=== PATIENT | female | born 1985 | race Caucasian/White ===

== ENCOUNTER 2021-11-28 16:50 | Emergency (ER) | payer OTHER, SELFPAY ==
[2021-11-28 17:18] VITALS: BP 147/81; PULSE 81; RESP 16; TEMP 35.9; O2SAT 99
--- NOTE | 2021-11-28 18:27 | ED.URI ---
HPI - URI/Sore Throat General Chief Complaint: Upper Respiratory Infection Stated Complaint: not feeling well Time Seen by Provider: 11/28/21 18:19 Source: patient and RN notes reviewed Mode of arrival: ambulatory Limitations: no limitations History of Present Illness HPI Narrative: Patient presents today complaining of body aches, fatigue, diarrhea, cough, congestion, chills, headache since yesterday. Denies fever. She currently rates her pain 7/10 and has tried no [id number] interventions prior to arrival. Denies any sick exposures. She has not been vaccinated against influenza or COVID-19. MD elicited complaint: cough and nasal congestion Related Data Home Medications Medication Instructions Recorded Confirmed Unable to Obtain Home Medications 11/28/21 11/28/21 Allergies Allergy/AdvReac Type Severity Reaction Status Date / Time metformin Allergy Headache Verified 11/28/21 17:29 Review of Systems Review of Systems: CONSTITUTIONAL: Denies fever, or sweats.+ Body aches, chills, fatigue EYES: Denies visual changes, redness, or discharge. ENT: Denies rhinorrhea, sore throat, or otalgia.+ Congestion CARDIOVASCULAR: Denies chest pain, palpitations, or edema. RESPIRATORY: Denies dyspnea.+ Cough GASTROINTESTINAL: Denies abdominal pain, nausea, vomiting.+ Diarrhea GENITOURINARY: Denies dysuria or hematuria. SKIN: Denies rash, itching, or wounds. MUSCULOSKELETAL: Denies back pain, joint pain, or myalgia. NEUROLOGIC: Denies headache, numbness, tingling, or weakness. PSYCH: Denies depression or anxiety. PMFSH Comments At time of signature, I have reviewed and agree with nursing past medical, surgical, social and family history unless otherwise noted. Please see nursing chart for further information. There is no relevant family history pertinent to the presenting complaint Exam Narrative: GENERAL: Mildly ill-appearing, well-nourished, and in no acute distress. HEAD: Normocephalic, atraumatic. EYES: EOMI. No redness or drainage. Conjunctivae normal. ENT: Mucous membranes pink and moist. Nares clear. No rhinorrhea. TMs normal bilaterally. Throat mildly erythematous without edema or exudate. Uvula midline. NECK: Normal AROM. Supple. No lymphadenopathy. CHEST: No respiratory distress. Clear to auscultation. HEART: Regular rate and rhythm. No murmur appreciated. Normal peripheral pulses. EXTREMITIES: Normal range of motion. No edema. SKIN: Warm, dry, no rash. Capillary refill normal. Normal skin turgor. NEURO: No focal deficits. Alert and oriented x3. Gait steady. PSYCH: Normal affect. No signs of depression or anxiety. Course Course Level of Care: Express Care Visit Vital Signs Vital signs: Vital Signs Temperature 96.7 F L 11/28/21 17:18 Pulse Rate 81 11/28/21 17:18 Respiratory Rate 16 11/28/21 17:18 Blood Pressure 147/81 H 11/28/21 17:18 Pulse Oximetry 99 11/28/21 17:18 Temperature 96.7 F L 11/28/21 17:18 Pulse Rate 81 11/28/21 17:18 Respiratory Rate 16 11/28/21 17:18 Blood Pressure 147/81 H 11/28/21 17:18 Pulse Oximetry 99 11/28/21 17:18 Reviewed. Pt has been instructed to follow up with her PCP regarding her elevated blood pressure today. MDM - URI/Sore Throat Differential Diagnosis Differential diagnosis: Likely upper respiratory infection, viral infection, influenza and other (COVID-19) Lab Data Attestation: I reviewed the patient's lab results. Labs: Lab Results 11/28/21 Range/Units 18:25 POC SARS CoV-2 Ag Negative (Negative) Critical Care Time Critical Care Time Critical Care Time: No Discharge Plan Discharge Clinical Impression: Viral syndrome Patient Disposition: Home, Self-Care Condition: Stable Instructions: Viral Syndrome (ED) Additional Instructions: Your rapid COVID-19 test is negative today. We have swabbed you for COVID-19 PCR and will notify you of the results in a couple of days. Take [id number] medi
--- NOTE | 2021-11-30 11:00 | PC.NURSE ---
called and requested covid pcr test result and aware is pending.
[2021-12-01 18:17] LABS: SARS-CoV-2 RNA PCR Negative
== END 2021-11-28 19:10 | disposition home or self-care (01) ==
PROVIDERS: Emergency Provider Nurse Practitioner
DX: B34.9 Viral infection, unspecified (principal); Z20.822 Contact with and (suspected) exposure to COVID-19; E11.9 Type 2 diabetes mellitus without complications
CPT/HCPCS: 87426; 99203; C9803; G0463; U0003; U0005

== ENCOUNTER 2022-02-05 20:00 | Emergency (ER) | payer OTHER, SELFPAY ==
[2022-02-05 20:08] VITALS: BP 146/102; PULSE 114; RESP 16; TEMP 37.1; O2SAT 100
--- NOTE | 2022-02-05 20:08 | ED.SOB ---
HPI - SOB/Dyspnea General Chief Complaint: Shortness of Breath/Dyspnea Stated Complaint: sob/cp Time Seen by Provider: 02/05/22 20:09 Source: patient, RN notes reviewed and old records reviewed Mode of arrival: ambulatory Limitations: no limitations History of Present Illness HPI Narrative: 36-year-old female presents to the [facility] with complaints of upper back pain between her scapulas for the last 2 to 3 days. Patient states that she pulled a muscle. 20 minutes prior to arrival she started having chest pain and shortness of breath. Patient has a history of diabetes. Blood sugars have been in the 200s. Denies any heart or lung issues. MD elicited complaint: shortness of breath Related Data Home Medications Medication Instructions Recorded Confirmed dulaglutide [Trulicity] 4.5 mg SUBCUT DAILY 02/05/22 02/05/22 Allergies Allergy/AdvReac Type Severity Reaction Status Date / Time metformin Allergy Headache Verified 02/05/22 20:02 Review of Systems Review of Systems: All systems reviewed & are unremarkable except as noted in HPI and below Constitutional: Constitutional: Reports no additional constitutional complaints, Denies chills and Denies fever(s) Eyes: Eyes: Reports no additional eye complaints ENT: Reports system reviewed and no additional complaints, except as documented and Denies sore throat Cardiovascular: Cardiovascular: Reports as per HPI, Reports chest pain and Reports rapid heart rate Respiratory: Respiratory: Reports as per HPI and Reports dyspnea Gastrointestinal: Gastrointestinal: Reports no additional gastrointestinal complaints, Denies abdominal pain, Denies nausea and Denies vomiting Musculoskeletal: Musculoskeletal: Reports as per HPI and Reports back pain Integumentary/Breasts: Skin/Breast: Reports system reviewed and no additional complaints, except as docu Neurologic: Reports system reviewed and no additional complaints, except as documented Psychiatric: Psychiatric: Reports no additional psychiatric complaints Allergic/Immunologic: Allergic/Immunologic: Reports no additional allergic/immunologic complaints PMFSH Comments At the time of my signature, I reviewed and agree with the nursing past medical, surgical, social, and family history. There is no relevant family history pertinent to the patient complaint. Exam Const: General: alert, awake, acute distress and anxious Nutritional Appearance: well nourished and obese centrally obese Orientation/consciousness: patient oriented x3 Limitations: no limitations HENMT: Head: normal to inspection Ears: external ears normal Eyes: Pupils: Equal, round and reactive pupils present Neck: Neck: normal visual inspection, no lymphadenopathy and no meningeal signs Chest: Chest palpation & inspection: normal inspection of the chest Resp: Effort & Inspection: normal respiratory effort and no use of accessory muscles Auscultation: clear to auscultation bilaterally, no crackles, no rales, no rhonchi and no wheezes Cardio: Rate: regular rate Rhythm: regular rhythm GI: GI Palp: Yes Soft to palpation and No Tenderness to palpation present (GI) Back/Spine/Pelvis: Back: no CVA tenderness Cervical Spine: normal cervical lordosis Other: Tenderness between scapulas worse on the right side Skin: General skin exam: normal color Rashes: no rashes Wounds: no wounds Neuro: General: patient oriented x3, moves all extremities, no meningeal signs and no focal motor deficits Cranial nerves: Yes Equal, round and reactive pupils present Speech: normal speech Gait exam (Neuro): Normal gait present Extrem: General: normal to inspection Psych: Appearance: grossly normal and well kempt Affect: Anxious affect present Attitude: cooperative Thought content: Yes Normal thought content present Course Course Emergency Course: Patient stating that she is having trouble breathing, chest pain, worst pain of her life 10 out of 10, EMS notified for transpor
--- NOTE | 2022-02-05 20:15 | ECG_ITS ---
Measurements Intervals [place] Rate: 105 P: 67 HI: 154 QRS: 51 QRSD: 93 T: 60 QT: 319 QTc: 423 Interpretive Statements SINUS TACHYCARDIA NONSPECIFIC T-WAVE ABNORMALITY ABNORMAL ECG NO PREVIOUS ECG AVAILABLE FOR COMPARISON Electronically Signed On 02-06-2022 13:54:14 CDT by Gerhard Dobson M.D.
[2022-02-05 20:17] LABS: Glucose Point of Care 244 mg/dl (65-105)
[2022-02-05] MEDS: ASPIRIN 81 MG CHEWABLE TABLET 324 MG PO (20:17)
[2022-02-05 20:40] LABS: Glucose Point of Care 277 mg/dl (65-105)
== END 2022-02-05 20:25 | disposition short-term general hospital (02) ==
PROVIDERS: Emergency Provider Nurse Practitioner
DX: R07.9 Chest pain, unspecified (principal); R06.02 Shortness of breath; M54.6 Pain in thoracic spine; E11.9 Type 2 diabetes mellitus without complications
CPT/HCPCS: 82948; 93005; 99215; A9270; G0463

== ENCOUNTER 2022-02-05 20:36 | Emergency (ER) | payer OTHER, SELFPAY ==
--- NOTE | ~2022-02-05 | CT_ITS ---
EXAMINATION: CTA chest PE protocol EXAM DATE: 02/05/2022 22:32 INDICATION: Right shoulder pain migrating to middle of chest. TECHNIQUE: Spiral CTA of the chest (pulmonary arteries) was performed with 100 cc Omnipaque 350 intr avenous contrast injection. Images were acquired during the pulmonary arterial phase. Coronal maxi mum intensity projection 3D-reconstructions were created by the technologist on dedicated workstation . Axial, coronal and sagittal reformatted images were reviewed. The dose-length product (DLP) for t his examination was 837.74 mGy-cm. The exposure was tailored according to patient size (auto mA exp osure control), and iterative reconstruction (ASIR) was used as additional dose reduction technique. There is no prior study for comparison. FINDINGS: Pulmonary arteries are well opacified and without intraluminal filling defects. No thora cic aortic dissection. The lungs are clear. There are no pleural or pericardial effusions. Trach eobronchial tree is patent. There is no mediastinal, hilar or axillary lymphadenopathy. There is no pneumothorax. Heart normal in size. No evidence of coronary arterial calcification. Upper abd omen is unremarkable. There is thoracic spondylosis without osteoblastic or osteolytic lesions iden tified. IMPRESSION: Unremarkable CT pulmonary exam. Reviewed, dictated and finalized at location G.
--- NOTE | ~2022-02-05 | XR_ITS ---
EXAMINATION: XR chest 1V portable EXAM DATE: 02/05/2022 21:00 INDICATION: RT Shoulder Painx2 Days,Sternal Cp Into Shoulder Blades Today. TECHNIQUE: Portable AP frontal chest x-ray was obtained. There is no prior study for comparison. FINDINGS: The lungs are clear. There are no pleural effusions. The cardiomediastinal silhouette is within normal limits. There is no pneumothorax suspected. The bones and soft tissues are unremarkab le. IMPRESSION: Normal chest x-ray exam. Reviewed, dictated and finalized at location G. IMPRESSION: Normal chest x-ray exam.
[2022-02-05 20:37] VITALS: PULSE 120; RESP 18; TEMP 36.5; O2SAT 99
[2022-02-05 20:41] VITALS: BP 143/97
--- NOTE | 2022-02-05 20:46 | ECG_ITS ---
Measurements Intervals [place] Rate: 111 P: 74 HI: 152 QRS: 52 QRSD: 87 T: 42 QT: 321 QTc: 437 Interpretive Statements SINUS TACHYCARDIA NONSPECIFIC T-WAVE ABNORMALITY ABNORMAL ECG COMPARED TO ECG 02/05/2022 20:12:26 NO SIGNIFICANT CHANGES Electronically Signed On 02-06-2022 13:54:33 CDT by Gerhard Dobson M.D.
--- NOTE | 2022-02-05 20:55 | ED.CHESTPAIN ---
HPI - Chest Pain General Chief Complaint: Chest Pain Stated Complaint: chest pain, bs 247 Time Seen by Provider: 02/05/22 20:48 Source: patient and RN notes reviewed Mode of arrival: EMS Limitations: no limitations History of Present Illness HPI narrative: Patient is 36 years old white female came to the ED by ambulance from urgent care because of back pain mainly between shoulder blades started yesterday, intermittent, today started having chest pain, across the chest, sharp stabbing, worse with breathing, coughing and any movement. Patient denies any relieving factors. Patient denies any fever, chills, nausea, vomiting, diarrhea, constipation, shortness of breath patient also denies any stress. Patient started on phentermine the fourth of this month. History of diabetes, smoking and drinking, denies drug use. Related Data Home Medications Medication Instructions Recorded Confirmed dulaglutide [Trulicity] 4.5 mg SUBCUT DAILY 02/05/22 02/05/22 Allergies Allergy/AdvReac Type Severity Reaction Status Date / Time metformin Allergy Headache Verified 02/05/22 20:02 Review of Systems Review of Systems: CONSTITUTIONAL: Denies fever, chills, or sweats. EYES: Denies visual changes, redness, or discharge. ENT: Denies rhinorrhea, congestion, sore throat, or otalgia. CARDIOVASCULAR: Denies chest pain, palpitations, or edema. RESPIRATORY: Denies cough or dyspnea. GASTROINTESTINAL: Denies abdominal pain, nausea, vomiting, or diarrhea. GENITOURINARY: Denies dysuria or hematuria. SKIN: Denies rash or itching. MUSCULOSKELETAL: Back pain and chest pain NEUROLOGIC: Denies headache, numbness, or weakness. PSYCHIATRIC: Denies anxiety or depression. Exam Narrative: General appearance: Well-developed, well-nourished, restless, Skin: Normal color Head: Normocephalic, nontraumatic Eyes: Clear conjunctiva ENT: Oropharynx normal, ears normal, nose normal Neck: Supple, nontender Chest and respiratory: Airway patent, no respiratory distress, no accessory muscle use Heart: Tachycardia Abdomen: Soft, nontender, no organomegaly, quiet bowel sounds Vascular: Normal peripheral pulses, normal capillary refill. Musculoskeletal: Severe diffuse tenderness all over the upper back, bilaterally, no bruises, no swelling. Neurologic: Alert and oriented ?3, [employer] is normal as tested, no gross motor deficit Course Vital Signs Vital signs: Vital Signs Temperature 36.5 C 02/05/22 20:37 Pulse Rate 120 H 02/05/22 20:37 Respiratory Rate 18 02/05/22 20:37 Pulse Oximetry 99 02/05/22 20:37 Temperature 36.5 C 02/05/22 20:37 Pulse Rate 120 H 02/05/22 20:37 Respiratory Rate 18 02/05/22 20:37 Blood Pressure 143/97 H 02/05/22 20:41 Pulse Oximetry 99 02/05/22 20:37 MDM - Chest Pain ECG Data EKG #1: Attestation: I personally reviewed and interpreted this ECG as follows: ECG completion date: 02/05/22 ECG completion time: 20:55 Interpretation: Sinus tachycardia at 105 bpm, nonspecific T wave abnormality, abnormal rhythm EKG. No previous EKG for comparison Critical Care Time Critical Care Time Critical Care Time: Yes Total Critical Care Time: 35 Discharge Plan Discharge Additional Instructions: Patient care turned over to Dr. bowen at shift change, awaiting labs, imaging, disposition. Prescriptions: No Action Trulicity 4.5 mg/0.5 mL pen injector 4.5 mg SUBCUT DAILY RF: 0 Follow-up/Referrals: UNKNOWN,DOCTOR [Primary Care Provider] -
[2022-02-05 21:20] LABS: Basophils Absolute Auto 0.1 K/mm3 (0.0-0.1); Basophils Percent Auto 0.4 % (0.2-1.2); Eosinophils Absolute Auto 0.3 K/mm3 (0-0.3); Eosinophils Percent Auto 1.5 % (0-4.4); Hematocrit 37.8 % (37.0-47.0); Hemoglobin 12.6 g/dL (12.0-15.0); Immature Granulocyte Absolute 0.08 K/mm3 (0.00-0.031); Immature Granulocyte Percent A 0.4 % (0-0.5); Lymphocytes Absolute Auto 6.44 K/mm3 (0.9-3.2); Lymphocytes Percent Auto 31.7 % (18.3-44.2); Mean Corpuscular HGB Conc 33.3 g/dl (32-36); Mean Corpuscular Hemoglobin 26.5 pg (26-34); Mean Corpuscular Volume 79.4 fl (80-100); Mean Platelet Volume 9.3 fl (7.4-10.4); Monocytes Absolute Auto 0.9 K/mm3 (0.1-0.6); Monocytes Percent Auto 4.3 % (2.6-8.5); Neutrophils Absolute Auto 12.5 K/mm3 (1.3-6.7); Neutrophils Percent Auto 61.7 % (45.5-73.1); Platelet Count Result 440 k/mm3 (150-375); Red Blood Count 4.76 M/mm3 (4.2-5.4); Red Cell Distribution Width 14.6 % (11.5-14.5); White Blood Count 20.3 K/mm3 (4.5-10.0)
[2022-02-05] MEDS: ONDANSETRON INJ 4 MG/2 ML VIAL IV PUSH (21:28)
[2022-02-05] MEDS: KETOROLAC 30 MG/ML VIAL (*BKC) IV PUSH (21:29)
[2022-02-05 21:30] LABS: Alanine Aminotransferase 22 U/L (4-35); Alkaline Phosphatase 93 U/L (38-126); Anion Gap 9 mmol/L (8-16); Aspartate Amino Transferase 23 U/L (14-36); Bilirubin,Total 0.2 mg/dL (0.2-1.3); Blood Urea Nitrogen 5 mg/dL (7-17); Calcium 8.9 mg/dL (8.4-10.2); Carbon Dioxide 19 mmol/L (22-30); Chloride 104 mmol/L (98-107); Estimated CRCL calculation 140 ml/min; Estimated Glomerular Filt Rate > 60; Glucose 270 mg/dL (65-110); Potassium 3.7 mmol/L (3.4-5.0); Sodium 132 mmol/L (137-145)
[2022-02-05] MEDS: HYDROmorphone HCL INJ (*CRX) 1 MG/ML SYR 0.5 MG IV PUSH (21:31)
[2022-02-05 21:41] LABS: INR 0.9
[2022-02-05 21:42] LABS: Partial Thromboplastin Time 23.9 SECONDS (22.3-36.8)
[2022-02-05 21:56] LABS: Troponin I < 0.012 ng/mL (0.000-0.034)
[2022-02-05] MEDS: SODIUM CHLORIDE 0.9% IV 1,000 ML 999 ML IV CONT (22:21)
[2022-02-05 23:04] VITALS: PULSE 90
[2022-02-06 00:01] LABS: Troponin I < 0.012 ng/mL (0.000-0.034)
[2022-02-06 00:23] VITALS: BP 141/76; PULSE 90; RESP 18; O2SAT 100
== END 2022-02-06 00:24 | disposition home or self-care (01) ==
PROVIDERS: Emergency Medicine; Emergency Provider Emergency Medicine
DX: R07.89 Other chest pain (principal); D72.829 Elevated white blood cell count, unspecified; E11.9 Type 2 diabetes mellitus without complications; F17.200 Nicotine dependence, unspecified, uncomplicated; Z79.899 Other long term (current) drug therapy; R00.0 Tachycardia, unspecified; R94.31 Abnormal electrocardiogram [ECG] [EKG]
CPT/HCPCS: 36415; 71045; 71275; 80053; 81025; 82948; 84484; 85025; 85380; 85610; 85730; 93005; 96361; 96374; 96375; 99284; A9270; J1170; J1885; J2405; J7030; Q9967

== ENCOUNTER 2022-07-14 11:32 | Emergency (ER) | payer OTHER, SELFPAY ==
[2022-07-14 11:40] VITALS: BP 136/94; PULSE 90; RESP 16; TEMP 37.2; O2SAT 100
--- NOTE | 2022-07-14 11:55 | ED.SKABFB ---
HPI - Skin/Abscess/Foreign Bdy General Chief complaint: Wound/Laceration Stated complaint: cyst inner thigh Source: patient Mode of arrival: ambulatory Limitations: no limitations History of Present Illness HPI narrative: 36 year old male presents to [facility] with complaints of abscess to right groin X 3 days. Pt has been applying Prid ointment with minimal relief. Patient reports that she has has abscesses in the past and has needed them drained in the past. Patient has been applying warm compresses and soaks with minimal relief. Patient denies fever, body aches, chills, nausea, vomiting or diarrhea complaint: abscess/boil Onset (ago): day(s) (2-3) Location: RLE (right groin ) Relieving factors: none Exacerbating factors: none Context: none Associated symptoms: denies other symptoms Treatments prior to arrival: OTC topical medication Related Data Home Medications Medication Instructions Recorded Confirmed dulaglutide 4.5 mg/0.5 mL 4.5 mg subcut DAILY 02/05/22 02/05/22 subcutaneous pen injector (Trulicity) escitalopram oxalate 10 mg tablet mg 07/14/22 ezetimibe 10 mg tablet mg 07/14/22 insulin detemir U-100 100 unit/mL unit subcut 07/14/22 (3 mL) subcutaneous pen (Levemir FlexTouch U-100 Insulin) insulin lispro 100 unit/mL subcut 07/14/22 subcutaneous pen rosuvastatin 40 mg tablet mg 07/14/22 Allergies Allergy/AdvReac Type Severity Reaction Status Date / Time metformin Allergy Headache Verified 02/05/22 20:02 Review of Systems Constitutional: Constitutional: Denies chills, Denies fatigue, Denies fever(s) and Denies weakness ENT: Denies vertigo and Denies dizziness Respiratory: Respiratory: Denies cough, Denies dyspnea and Denies wheezing Integumentary/Breasts: Comments: abscess to right groin Endocrine: Endocrine: Denies fatigue PMFSH Comments At time of signature, I agree with nursing past medical, surgical, social and family history. There is no relevant family history pertinent to the presenting complaint. Exam Const: General: healthy appearing Nutritional Appearance: well nourished Orientation/consciousness: patient oriented x3 Limitations: no limitations Neck: Neck: normal visual inspection Resp: Effort & Inspection: normal respiratory effort, not labored and not tachypneic Auscultation: clear to auscultation bilaterally Cardio: Rate: regular rate Rhythm: regular rhythm Heart sounds: Murmur heart sound present Skin: General skin exam: normal color Rashes: no rashes Wounds: no wounds Other: 5cm X 3 cm abscess noted to right groin; mild fluctuance induration noted. There is no streaking erythema, open wounds, bruising or bleeding noted Neuro: General: patient oriented x3 Cranial nerves: Yes Nystagmus not present Speech: normal speech Gait exam (Neuro): Normal gait present Psych: Mental Status: mental status grossly normal Affect: normal affect Attitude: cooperative Course Course Level of Care: Express Care Visit Vital Signs Vital signs: Vital Signs Temperature 37.2 C 07/14/22 11:40 Pulse Rate 90 07/14/22 11:40 Respiratory Rate 16 07/14/22 11:40 Blood Pressure 136/94 H 07/14/22 11:40 Pulse Oximetry 100 07/14/22 11:40 Oxygen Delivery Room Air 07/14/22 11:40 Temperature 37.2 C 07/14/22 11:40 Pulse Rate 90 07/14/22 11:40 Respiratory Rate 16 07/14/22 11:40 Blood Pressure 136/94 H 07/14/22 11:40 Pulse Oximetry 100 07/14/22 11:40 Oxygen Delivery Room Air 07/14/22 11:40 Procedures Abscess I/D right groin : Date of Incision: 07/14/22 Time of Incision: 12:07 Side (if applicable): right Local Anesthetic: lidocaine 1% Amount of anesthesia used (mL): 4 Technique: incised with #11 blade Irrigation: No Packing used?: none I&D Results: Pus Abcess I&D Additional Comments: 4x4s applied -- pt tolerated well MDM - Skin/Abscess/Foreign Bdy MDM Paramjit
--- NOTE | 2022-07-14 11:57 | PC.NURSE ---
i and d set up at bedside.
== END 2022-07-14 12:36 | disposition home or self-care (01) ==
PROVIDERS: Emergency Provider Nurse Practitioner Family
DX: L02.214 Cutaneous abscess of groin (principal); E11.9 Type 2 diabetes mellitus without complications
CPT/HCPCS: 10060; 99213; G0463

== ENCOUNTER 2022-07-30 16:50 | Emergency (ER) | payer OTHER, SELFPAY ==
[2022-07-30 16:59] VITALS: BP 136/83; PULSE 82; RESP 16; TEMP 36.2; O2SAT 100
--- NOTE | 2022-07-30 17:45 | ED.DENTAL ---
HPI - Dental/Oral General Chief complaint: Dental/Oral Stated complaint: Dental Pain, Ear Pain Time Seen by Provider: 07/30/22 17:40 History of Present Illness HPI Narrative: Prerna Luciano is a 36-year-old female who comes here with dental pain and also upper respiratory infection with coughing and some wheezing that is not improving even with [id number] medication-no fever, nausea vomiting or diarrhea Related Data Home Medications Medication Instructions Recorded Confirmed dulaglutide 4.5 mg/0.5 mL 4.5 mg subcut DAILY 02/05/22 02/05/22 subcutaneous pen injector (Trulicity) escitalopram oxalate 10 mg tablet mg 07/14/22 ezetimibe 10 mg tablet mg 07/14/22 insulin detemir U-100 100 unit/mL unit subcut 07/14/22 (3 mL) subcutaneous pen (Levemir FlexTouch U-100 Insulin) insulin lispro 100 unit/mL subcut 07/14/22 subcutaneous pen rosuvastatin 40 mg tablet mg 07/14/22 Allergies Allergy/AdvReac Type Severity Reaction Status Date / Time metformin Allergy Headache Verified 07/30/22 17:25 Review of Systems Review of Systems: CONSTITUTIONAL: Denies fever, chills, sweats. EYES: Denies visual changes, redness, discharge. ENT: Denies rhinorrhea, has congestion, sore throat, otalgia. Left lower 31 tooth pain CARDIOVASCULAR: Denies chest pain, palpitations, edema. RESPIRATORY: Denies dyspnea, wheezing, has cough GASTROINTESTINAL: Denies abdominal pain, nausea, vomiting, diarrhea. GENITOURINARY: Denies dysuria, hematuria, abnormal discharge SKIN: Denies rash or itching. NEUROLOGIC: Denies numbness, or focal weakness. PSYCHIATRIC: Denies anxiety or depression. PMFSH Past Medical History Medical History Depression Diabetes High cholesterol Social History Social History (Updated 07/30/22 @ 17:49 by Fauzia Carranza CNP) Smoking status: Never smoker Substance use: current Comments At time of signature, I agree with nursing past medical, surgical, social and family history. There is no relevant family history pertinent to the presenting complaint. Exam Narrative: GENERAL: This is a well-nourished, well-developed patient, in mild distress. HEAD: normocephalic, atraumatic. EYES: Sclera clear/white. Vision is grossly intact. EARS: External ears normal,. Hearing grossly intact. NOSE: External nose normal without nasal discharge, nares without redness, no rhinorrhea. THROAT: Mucous membranes moist, posterior pharynx erythema, poor dentition NECK: Neck supple, non-tender CARDIOVASCULAR: Regular rate and rhythm without murmurs, gallops, or rubs. RESPIRATORY: Diminished to auscultation. Breath sounds equal bilaterally. Diffuse wheezes, rales, or rhonchi. GASTROINTESTINAL: Not done SKIN: warm, intact with no suspicious lesions or rash, good texture and turgor. NEURO: awake, alert, and oriented to person, place and time. There were no obvious focal neurologic abnormalities. Steady gait EXTREMITIES: Normal range of motion. BACK: Nontender without deformity Course Course Emergency Course: Patient comes for dental pain and upper respiratory symptoms Started on amoxicillin for dental pain For the bronchitis started on prednisone Tessalon Perles and inhaler Level of Care: Express Care Visit Vital Signs Vital signs: Vital Signs Temperature 97.1 F L 07/30/22 16:59 Pulse Rate 82 07/30/22 16:59 Respiratory Rate 16 07/30/22 16:59 Blood Pressure 136/83 07/30/22 16:59 Pulse Oximetry 100 07/30/22 16:59 Oxygen Delivery Room Air 07/30/22 16:59 Temperature 97.1 F L 07/30/22 16:59 Pulse Rate 82 07/30/22 16:59 Respiratory Rate 16 07/30/22 16:59 Blood Pressure 136/83 07/30/22 16:59 Pulse Oximetry 100 07/30/22 16:59 Oxygen Delivery Room Air 07/30/22 16:59 MDM - Dental/Oral Differential Diagnosis Differential diagnosis: Likely toothache, dental abscess and other (Bronchitis versus upper respiratory
== END 2022-07-30 17:58 | disposition home or self-care (01) ==
PROVIDERS: Emergency Provider Nurse Practitioner; PCP Internal Medicine
DX: K04.7 Periapical abscess without sinus (principal); J40 Bronchitis, not specified as acute or chronic; E11.9 Type 2 diabetes mellitus without complications; Z79.4 Long term (current) use of insulin; E78.00 Pure hypercholesterolemia, unspecified
CPT/HCPCS: 99213; G0463

== ENCOUNTER 2022-08-05 11:36 | Emergency (ER) | payer OTHER, SELFPAY ==
[2022-08-05 11:55] VITALS: BP 148/86; PULSE 95; RESP 16; TEMP 36.6; O2SAT 100
--- NOTE | 2022-08-05 12:42 | ED.URI ---
HPI - URI/Sore Throat General Chief Complaint: Upper Respiratory Infection Stated Complaint: Sore Throat Time Seen by Provider: 08/05/22 12:42 Source: patient and RN notes reviewed Mode of arrival: ambulatory Limitations: no limitations History of Present Illness HPI Narrative: 36-year-old female presents to the [facility] with complaints of a sore throat. Patient was seen on July 30, 6 days ago and prescribed medications, amoxicillin, Tessalon Perles and albuterol. Patient states that she started having laryngitis yesterday. Needs a work note because she talks on the phone all day. MD elicited complaint: sore throat Related Data Home Medications Medication Instructions Recorded Confirmed dulaglutide 4.5 mg/0.5 mL 4.5 mg subcut DAILY 02/05/22 08/05/22 subcutaneous pen injector (Trulicity) escitalopram oxalate 10 mg tablet 10 mg PO DAILY 07/14/22 08/05/22 ezetimibe 10 mg tablet 10 mg PO DAILY 07/14/22 08/05/22 insulin detemir U-100 100 unit/mL See Rx Instructions .Route .COMPLEX 07/14/22 08/05/22 (3 mL) subcutaneous pen (Levemir FlexTouch U-100 Insulin) insulin lispro 100 unit/mL See Rx Instructions .Route .COMPLEX 07/14/22 08/05/22 subcutaneous pen rosuvastatin 40 mg tablet 40 mg PO DAILY 07/14/22 08/05/22 Allergies Allergy/AdvReac Type Severity Reaction Status Date / Time metformin Allergy Headache Verified 08/05/22 12:21 Review of Systems Review of Systems: All systems reviewed & are unremarkable except as noted in HPI and below Constitutional: Constitutional: Reports no additional constitutional complaints, Denies chills and Denies fever(s) Eyes: Eyes: Reports no additional eye complaints ENT: Reports as per HPI Cardiovascular: Cardiovascular: Reports no additional cardiovascular complaints Respiratory: Respiratory: Reports no additional respiratory complaints Gastrointestinal: Gastrointestinal: Reports no additional gastrointestinal complaints Musculoskeletal: Musculoskeletal: Reports no additional musculoskeletal complaints Integumentary/Breasts: Skin/Breast: Reports system reviewed and no additional complaints, except as docu Neurologic: Reports system reviewed and no additional complaints, except as documented Psychiatric: Psychiatric: Reports no additional psychiatric complaints Allergic/Immunologic: Allergic/Immunologic: Reports no additional allergic/immunologic complaints PMFSH Past Medical History Medical History Depression Diabetes High cholesterol Social History Social History Smoking status: Never smoker Substance use: current Comments At the time of my signature, I reviewed and agree with the nursing past medical, surgical, social, and family history. There is no relevant family history pertinent to the patient complaint. Exam Const: General: healthy appearing, no acute distress and alert Nutritional Appearance: well nourished Orientation/consciousness: patient oriented x3 Limitations: no limitations HENMT: Head: normal to inspection Ears: external ears normal, TM's normal bilaterally and EAC's normal General nose exam: Normal external nose present and Normal nares present Face and sinus: normal facial exam Mouth: Yes Normal oral and palatal mucosa present, Yes lip normal and Yes moist mucous membranes Throat: posterior oropharynx normal and uvula midline Eyes: General: appearance normal, both eyes and all related structures Pupils: Equal, round and reactive pupils present Neck: Neck: normal visual inspection, no lymphadenopathy and no meningeal signs Chest: Chest palpation & inspection: normal inspection of the chest Resp: Effort & Inspection: normal respiratory effort and no use of accessory muscles Auscultation: clear to auscultation bilaterally, no crackles, no rales, no rhonchi and no wheezes Cardio: Rate: regular rate Rhythm: regu
== END 2022-08-05 12:58 | disposition home or self-care (01) ==
PROVIDERS: Emergency Provider Nurse Practitioner; PCP Internal Medicine
DX: J04.0 Acute laryngitis (principal); E11.9 Type 2 diabetes mellitus without complications; E78.00 Pure hypercholesterolemia, unspecified; F32.A Depression, unspecified
CPT/HCPCS: 99211; G0463

== ENCOUNTER 2022-10-22 12:19 | Emergency (ER) | payer OTHER, SELFPAY ==
--- NOTE | ~2022-10-22 | CT_ITS ---
EXAMINATION: CT brain wo con DATE: 10/22/2022 12:55 INDICATION: Confusion. Slurred speech. TECHNIQUE: Computed tomography (CT) of the head was performed without intravenous contrast. The mA wa s adjusted according to patient size. Iterative reconstruction technique was employed. Exam dose: 60 5.33 mGy-cm total exam DLP. COMPARISON: None FINDINGS: No intracranial mass lesion or hemorrhage or cerebrovascular accident. No midline shift or mass effect. Normal kebede-white matter differentiation. Normal ventricular size. No subdural or epidur al hematoma. Orbital contents are unremarkable. There is a prominent up to approximately 1.9 cm polyp or mucous re tention cyst in the lower left maxillary sinus. The paranasal sinuses and mastoid air cells are other mulligan unremarkable. No skull fracture or bone destruction. IMPRESSION: No intracranial abnormality Reviewed, dictated and finalized at [facility]. Reviewed, dictated and finalized at [facility]. INSURANCE SPECIALIST IMPRESSION: No intracranial abnormality
[2022-10-22 12:27] VITALS: BP 175/95; PULSE 104; RESP 20; TEMP 36.8; O2SAT 100
--- NOTE | 2022-10-22 12:33 | ECG_ITS ---
Measurements Intervals [place] Rate: 70 P: 18 AK: 161 QRS: 14 QRSD: 112 T: 30 QT: 389 QTc: 422 Interpretive Statements SINUS RHYTHM NONSPECIFIC ST AND T WAVE ABNORMALITY COMPARED TO ECG 02/05/2022 20:42:07 SINUS RHYTHM NOW PRESENT Electronically Signed On 10-23-2022 14:51:12 DIET CONSULTANT by Ly Varela M.D.
[2022-10-22 13:15] LABS: Basophils Absolute Auto 0.1 K/mm3 (0.0-0.1); Basophils Percent Auto 0.5 % (0.2-1.2); Eosinophils Absolute Auto 0.1 K/mm3 (0-0.3); Hematocrit 39.6 % (37.0-47.0); Hemoglobin 13.5 g/dL (12.0-15.0); Immature Granulocyte Absolute 0.03 K/mm3 (0.00-0.031); Immature Granulocyte Percent A 0.2 % (0-0.5); Lymphocytes Absolute Auto 4.65 K/mm3 (0.9-3.2); Lymphocytes Percent Auto 38.3 % (18.3-44.2); Mean Corpuscular HGB Conc 34.1 g/dl (32-36); Mean Corpuscular Hemoglobin 27.4 pg (26-34); Mean Corpuscular Volume 80.3 fl (80-100); Mean Platelet Volume 9.7 fl (7.4-10.4); Monocytes Absolute Auto 0.5 K/mm3 (0.1-0.6); Neutrophils Absolute Auto 6.8 K/mm3 (1.3-6.7); Platelet Count Result 404 k/mm3 (150-375); Red Blood Count 4.93 M/mm3 (4.2-5.4); Red Cell Distribution Width 14.4 % (11.5-14.5); White Blood Count 12.1 K/mm3 (4.5-10.0)
[2022-10-22 13:28] LABS: INR 0.9; Prothrombin Time 11.6 Seconds (11.1-14.7)
[2022-10-22 13:29] LABS: Partial Thromboplastin Time 24.7 SECONDS (22.3-36.8)
[2022-10-22 13:36] LABS: Alanine Aminotransferase 28 U/L (6-35); Albumin Level 4.4 g/dL (3.5-5.1); Alkaline Phosphatase 96 U/L (38-126); Anion Gap 10 mmol/L (8-16); Aspartate Amino Transferase 26 U/L (14-36); Bilirubin,Total 0.2 mg/dL (0.2-1.3); Blood Urea Nitrogen 11 mg/dL (7-17); Calcium 9.3 mg/dL (8.4-10.2); Carbon Dioxide 23 mmol/L (22-30); Chloride 95 mmol/L (98-107); Estimated CRCL calculation 162 ml/min; Estimated Glomerular Filt Rate > 60; Glucose 405 mg/dL (65-110); Potassium 4.2 mmol/L (3.4-5.0); Sodium 128 mmol/L (137-145)
[2022-10-22 13:47] LABS: Troponin I < 0.012 ng/mL (0.000-0.034)
--- NOTE | 2022-10-22 13:58 | PC.NURSE ---
patient left waiting area stating wait was too long
== END 2022-10-22 14:05 | disposition left against medical advice (07) ==
PROVIDERS: Emergency Provider Emergency Medicine; PCP Internal Medicine
DX: R51.9 Headache, unspecified (principal)
CPT/HCPCS: 36415; 70450; 80053; 84484; 85025; 85610; 85730; 93005; 99199

== ENCOUNTER 2022-10-22 16:41 | Emergency (ER) | payer OTHER, SELFPAY ==
[2022-10-22] VITALS (10 sets, daily range): BP systolic 127–179; BP diastolic 75–93; PULSE 72–86; RESP 13–29; TEMP 36.2; O2SAT 98–100
--- NOTE | 2022-10-22 18:15 | ECG_ITS ---
Measurements Intervals [place] Rate: 70 P: 18 ND: 161 QRS: 14 QRSD: 112 T: 30 QT: 389 QTc: 422 Interpretive Statements SINUS RHYTHM WITHIN NORMAL LIMITS Electronically Signed On 10-23-2022 14:51:12 [employer] MECH[employer]IC by Ly LITTLE
[2022-10-22 18:32] LABS: Basophils Absolute Auto 0.1 K/mm3 (0.0-0.1); Basophils Percent Auto 0.6 % (0.2-1.2); Eosinophils Absolute Auto 0.2 K/mm3 (0-0.3); Eosinophils Percent Auto 1.1 % (0-4.4); Hemoglobin 13.2 g/dL (12.0-15.0); Immature Granulocyte Absolute 0.05 K/mm3 (0.00-0.031); Immature Granulocyte Percent A 0.4 % (0-0.5); Lymphocytes Absolute Auto 5.76 K/mm3 (0.9-3.2); Lymphocytes Percent Auto 41.2 % (18.3-44.2); Mean Corpuscular HGB Conc 33.8 g/dl (32-36); Mean Corpuscular Hemoglobin 26.3 pg (26-34); Mean Corpuscular Volume 77.8 fl (80-100); Mean Platelet Volume 9.6 fl (7.4-10.4); Monocytes Absolute Auto 0.7 K/mm3 (0.1-0.6); Monocytes Percent Auto 4.7 % (2.6-8.5); Neutrophils Absolute Auto 7.3 K/mm3 (1.3-6.7); Platelet Count Result 413 k/mm3 (150-375); Red Blood Count 5.01 M/mm3 (4.2-5.4); Red Cell Distribution Width 14.4 % (11.5-14.5)
[2022-10-22 18:33] LABS: Appearance Urine Cloudy (Clear); Bilirubin Urine Negative (Negative); Blood Urine Trace-lysed (Negative); Color Urine Light Yellow (Yellow); Glucose Urine UA 3+ mg/dL (Negative); Ketones Urine Negative (Negative); Leukocyte Esterase Ur 1+ LEU/UL (Negative); Nitrate Urine Negative (Negative); Protein Urine Negative (Negative); Urobilinogen Urine 0.2 mg/dL (<2.0); pH Urine 6.5 (5.0-9.0)
[2022-10-22 18:36] LABS: Bacteria Urine 4+ /hpf; Squamous Epithelial Cell Urine Many /hpf (Few)
[2022-10-22 18:38] LABS: Add Urine Microscopic? YES
[2022-10-22 18:43] LABS: Alanine Aminotransferase 29 U/L (6-35); Albumin Level 4.7 g/dL (3.5-5.1); Alkaline Phosphatase 94 U/L (38-126); Anion Gap 12 mmol/L (8-16); Aspartate Amino Transferase 27 U/L (14-36); Bilirubin,Total 0.5 mg/dL (0.2-1.3); Blood Urea Nitrogen 16 mg/dL (7-17); Calcium 9.3 mg/dL (8.4-10.2); Carbon Dioxide 22 mmol/L (22-30); Chloride 100 mmol/L (98-107); Estimated CRCL calculation 162 ml/min; Estimated Glomerular Filt Rate > 60; Glucose 270 mg/dL (65-110); Potassium 4.1 mmol/L (3.4-5.0); Sodium 134 mmol/L (137-145)
--- NOTE | 2022-10-22 19:39 | ED.GENADULT ---
HPI - General Adult General Chief complaint: Neuro Symptoms/Deficit Stated complaint: neuro sx, hyperglycemic Time Seen by Provider: 10/22/22 18:38 History of Present Illness HPI narrative: 37-year-old female presented to the emergency department for evaluation of feeling altered this morning. Patient states she felt that she was confused and was possibly slurring her speech but denied any focal numbness or weakness. Patient states at that time her blood sugars were elevated. Patient did present to the emergency department for evaluation and had an initial CT scan showing no acute interval abnormality. Unfortunately patient was unable to stay and had to leave but did return to the emergency department. Patient did take her insulin prior to returning and states that she does feel improved. Patient does have known hyperglycemia and has been working with her primary care physician to get better control over her blood sugars. Patient has no prior history of CVA. Related Data Home Medications Medication Instructions Recorded Confirmed dulaglutide 4.5 mg/0.5 mL 4.5 mg subcut DAILY 02/05/22 08/05/22 subcutaneous pen injector (Trulicity) escitalopram oxalate 10 mg tablet 10 mg PO DAILY 07/14/22 08/05/22 ezetimibe 10 mg tablet 10 mg PO DAILY 07/14/22 08/05/22 insulin detemir U-100 100 unit/mL See Rx Instructions .Route .COMPLEX 07/14/22 08/05/22 (3 mL) subcutaneous pen (Levemir FlexTouch U-100 Insulin) insulin lispro 100 unit/mL See Rx Instructions .Route .COMPLEX 07/14/22 08/05/22 subcutaneous pen rosuvastatin 40 mg tablet 40 mg PO DAILY 07/14/22 08/05/22 Allergies Allergy/AdvReac Type Severity Reaction Status Date / Time metformin Allergy Headache Verified 08/05/22 12:21 Review of Systems Review of Systems: CONSTITUTIONAL: Denies fever, chills, or sweats. EYES: Denies visual changes, redness, or discharge. ENT: Denies rhinorrhea, congestion, sore throat, or otalgia. CARDIOVASCULAR: Denies chest pain, palpitations, or edema. RESPIRATORY: Denies cough or dyspnea. GASTROINTESTINAL: Denies abdominal pain, nausea, vomiting, or diarrhea. GENITOURINARY: Denies dysuria or hematuria. SKIN: Denies rash or itching. MUSCULOSKELETAL: Denies back pain, joint pain, or myalgia. NEUROLOGIC: See [facility] Past Medical History Medical History Depression Diabetes High cholesterol Social History Social History Smoking status: Never smoker Substance use: current Exam Narrative: APPEARANCE: Well appearing, no pain, no distress, well-nourished. HEAD: normocephalic, atraumatic. EYES: PERRLA/EOMI, conjunctivae clear. NOSE: Normal no drainage EARS:TMS clear with good light reflex. THROAT: Pharynx clear, no exudate. NECK: Supple. No adenopathy, no masses. RESPIRATORY: Airway patent, respirations nonlabored. Clear to auscultation bilaterally, no rales, rhonchi, wheezing. CARDIOVASCULAR: Regular rate and rhythm without murmurs rubs or gallops. ABDOMINAL: Soft, some suprapubic tenderness to palpation MUSCULOSKELETAL: Moves all extremities. Strength/ROM intact, No edema, No calf tenderness. NEURO: Alert. Cranial nerves II through XII intact. Normal comprehensive neuro exam. No dysarthria, no ataxia, no discoordination, normal strength and reflexes. SKIN: Warm, dry. Normal Color Course Course Emergency Course: Patient's blood sugars did improved compared to her initial evaluation. Patient was treated with a liter of IV fluids. Patient does have a urinary tract infection which she was treated with antibiotics in the emergency department and at home. Patient did feel improved with treatment. Patient was educated on reasons to return to the emergency part. All questions concerns were addressed. Vital Signs Vital signs: Vital Signs Temperature 97.2 F L 10/22/22 16:47 Pulse Rate 86 10/22/22 16:47 Respirator
[2022-10-22] MEDS: SODIUM CHLORIDE 0.9% IV 1,000 ML 999 ML IV CONT (20:09)
[2022-10-22] MEDS: FLUCONAZOLE 150 MG TABLET PO (20:56)
== END 2022-10-22 21:02 | disposition home or self-care (01) ==
PROVIDERS: Emergency Medicine; Emergency Provider Emergency Medicine; PCP Internal Medicine
DX: N39.0 Urinary tract infection, site not specified (principal); F32.9 Major depressive disorder, single episode, unspecified; E11.9 Type 2 diabetes mellitus without complications; E78.5 Hyperlipidemia, unspecified; Z79.4 Long term (current) use of insulin
CPT/HCPCS: 36415; 80053; 81001; 81025; 85025; 93005; 96365; 99284; A9270; J0696; J7030

== ENCOUNTER 2022-11-08 12:23 | Emergency (ER) | payer OTHER, SELFPAY ==
[2022-11-08 12:36] VITALS: BP 139/82; PULSE 97; RESP 18; TEMP 36.1; O2SAT 100
--- NOTE | 2022-11-08 12:46 | ED.SKABFB ---
HPI - Skin/Abscess/Foreign Bdy General Chief complaint: Skin/Abscess/Foreign Body Stated complaint: genital abscess Time Seen by Provider: 11/08/22 12:46 Source: patient and RN notes reviewed Mode of arrival: ambulatory Limitations: dementia History of Present Illness HPI narrative: 37-year-old female presents concern for a boil in her right groin. She reports she has had a boil this area before, less than a month ago which she was treated with Bactrim for. Reports that went away except for 1 small bowel. Reports that flared up again over the last couple of days. She reports it is tender, she denies drainage MD complaint: abscess/boil and other (Redness) Related Data Home Medications Medication Instructions Recorded Confirmed dulaglutide 4.5 mg/0.5 mL 4.5 mg subcut DAILY 02/05/22 11/08/22 subcutaneous pen injector (Trulicity) escitalopram oxalate 10 mg tablet 10 mg PO DAILY 07/14/22 11/08/22 ezetimibe 10 mg tablet 10 mg PO DAILY 07/14/22 11/08/22 insulin detemir U-100 100 unit/mL See Rx Instructions .Route .COMPLEX 07/14/22 11/08/22 (3 mL) subcutaneous pen (Levemir FlexTouch U-100 Insulin) insulin lispro 100 unit/mL See Rx Instructions .Route .COMPLEX 07/14/22 11/08/22 subcutaneous pen rosuvastatin 40 mg tablet 40 mg PO DAILY 07/14/22 11/08/22 Allergies Allergy/AdvReac Type Severity Reaction Status Date / Time metformin Allergy Headache Verified 11/08/22 12:25 Review of Systems Review of Systems: CONSTITUTIONAL: Denies malaise, chills, sweats, or fever. SKIN: Reports a boil on her right groin. Denies purulent drainage, vesicles, bullae, numbness, pain beyond proportion MUSCULOSKELETAL: Denies joint pain or myalgia. NEUROLOGIC: Denies headache. All systems reviewed & are unremarkable except as noted in HPI and below PMFSH Past Medical History Medical History Depression Diabetes High cholesterol Social History Social History Smoking status: Never smoker Substance use: current Comments At time of signature, agree with nursing past medical, surgical, social and family history. There is no relevant family history pertinent to the presenting complaint Exam Narrative: GENERAL: Well-appearing, well-nourished, and in no acute distress. HEAD: Normocephalic, atraumatic. EYES: PERRLA, conjunctivae clear ENT: Mucous membranes moist. NECK: Supple. No lymphadenopathy CHEST: Clear to auscultation. No respiratory distress. HEART: Regular rate and rhythm. SKIN: Warm, dry. 5 cm x 3 cm Fluctuant and Erythema, tenderness, warmth with sharp margins noted to the right groin with that area of ecchymosis. No vesicles, bullae, necrosis, ecchymosis, crepitus noted. NEURO: Alert and oriented x3. PSYCH: Normal mood and affect Course Course Emergency Course: Patient is aware of diagnosis, understands and agrees to treatment plan. Anticipatory guidance given. Patient agrees to follow-up as directed and is aware of reasons to seek care at the emergency department. Portions of this record may have been created with voice recognition software Level of Care: Express Care Visit Vital Signs Vital signs: Reviewed. Procedures Abscess I/D other: Date of Incision: 11/08/22 Time of Incision: 12:50 Side (if applicable): right Local Anesthetic: lidocaine 1% Amount of anesthesia used (mL): 3 Technique: incised with #11 blade Amount of fluid expressed (mL): 5 Irrigation: Yes Packing used?: none I&D Results: Pus and Other (Blood clots) MDM - Skin/Abscess/Foreign Bdy MDM Narrative Medical decision making narrative: Verbal consent was obtained. The indication for the procedure was clinical suspicion for an abscess. The region was anesthetized with 1% lidocaine. The most fluctuant portion of the abscess was incised with an 11 blade scalpel. The
== END 2022-11-08 13:07 | disposition home or self-care (01) ==
PROVIDERS: Emergency Provider Nurse Practitioner; PCP Internal Medicine
DX: L02.214 Cutaneous abscess of groin (principal); E11.9 Type 2 diabetes mellitus without complications; E78.00 Pure hypercholesterolemia, unspecified; F32.A Depression, unspecified
CPT/HCPCS: 10060; 87070; 87075; 87076; 87185; 87205; 99213; G0463

== ENCOUNTER 2023-01-08 12:45 | Emergency (ER) | payer OTHER, SELFPAY ==
[2023-01-08 12:55] VITALS: BP 147/82; PULSE 96; RESP 18; TEMP 36.8; O2SAT 100
[2023-01-08 13:01] VITALS: BP 147/82; PULSE 96; RESP 18; TEMP 36.8; O2SAT 100
--- NOTE | 2023-01-08 13:18 | ED.SKABFB ---
HPI - Skin/Abscess/Foreign Bdy General Chief complaint: Wound/Laceration Stated complaint: abcess Time Seen by Provider: 01/08/23 13:21 Source: patient Mode of arrival: ambulatory Limitations: no limitations History of Present Illness HPI narrative: 37-year-old female presented for complaint of abscess to the right groin. She 1st noticed a flare up early this morning. Endorses pain is minimal at this time. She states she has had abscesses to this site in the past, and it was drained most recently on 11/08/2022. Since then she has been using hibiclens and dial soap. She has history of diabetes, and follows with her veterinary anatomist who has sent referral to a surgeon. Her PCP is also aware of the symptoms, but was unable to send an antibiotic for her today. She denies n/v/d/f/c. Not taking anything for pain. Related Data Home Medications Medication Instructions Recorded Confirmed dulaglutide 4.5 mg/0.5 mL 4.5 mg subcut DAILY 02/05/22 11/08/22 subcutaneous pen injector (Trulicity) escitalopram oxalate 10 mg tablet 10 mg PO DAILY 07/14/22 11/08/22 insulin lispro 100 unit/mL See Rx Instructions .Route .COMPLEX 07/14/22 01/08/23 subcutaneous pen rosuvastatin 40 mg tablet 40 mg PO DAILY 07/14/22 11/08/22 Allergies Allergy/AdvReac Type Severity Reaction Status Date / Time metformin Allergy Headache Verified 01/08/23 13:00 Review of Systems Review of Systems: CONSTITUTIONAL: Denies body aches, fever, chills, or sweats. EYES: Denies visual changes, redness, or discharge. ENT: Denies rhinorrhea, congestion CARDIOVASCULAR: Denies chest pain, palpitations, or edema. RESPIRATORY: Denies cough or dyspnea. GASTROINTESTINAL: Denies abdominal pain, nausea, vomiting, or diarrhea. SKIN: per HPI MUSCULOSKELETAL: Denies back pain, joint pain, or myalgia. NEUROLOGIC: Denies headache, numbness, tingling, or weakness. [facility] Past Medical History Medical History Depression Diabetes High cholesterol Social History Social History Smoking status: Never smoker Substance use: current Comments At time of signature, I have reviewed and agree with nursing past medical, surgical, social and family history unless otherwise noted. Please see nursing chart for further information. There is no relevant family history pertinent to the presenting complaint Exam Narrative: GENERAL: Well-appearing HEAD: Normocephalic, atraumatic. EYES: conjunctivae clear, and EOMI. ENT: Mucous membranes moist. Oropharynx without edema, erythema or lesions. NECK: Supple. No lymphadenopathy CHEST: Clear to auscultation. HEART: Regular rate and rhythm. SKIN: Warm, dry. 2 cm diameter erythematous abscess to the right groin, small area of fluctuance in the center. Minimally tender/warm. NEURO: Alert and oriented x3. Course Course Emergency Course: Patient is aware of diagnosis, understands and agrees to treatment plan. Anticipatory guidance given. Patient agrees to follow-up as directed and is aware of reasons to seek care at the emergency department. Portions of this record may have been created with voice recognition software Level of Care: Express Care Visit Vital Signs Vital signs: Vital Signs Temperature 98.2 F 01/08/23 12:55 Pulse Rate 96 01/08/23 12:55 Respiratory Rate 18 01/08/23 12:55 Blood Pressure 147/82 H 01/08/23 12:55 Pulse Oximetry 100 01/08/23 12:55 Oxygen Delivery Room Air 01/08/23 12:55 Temperature 98.2 F 01/08/23 13:01 Pulse Rate 96 01/08/23 13:01 Respiratory Rate 18 01/08/23 13:01 Blood Pressure 147/82 H 01/08/23 13:01 Pulse Oximetry 100 01/08/23 13:01 Oxygen Delivery Room Air 01/08/23 13:01 Reviewed MDM - Skin/Abscess/Foreign Bdy MDM Narrative Medical decision making narrative: Initially pt agreeable to I&D but then stated she needed to leave
== END 2023-01-08 13:53 | disposition home or self-care (01) ==
PROVIDERS: Emergency Provider Nurse Practitioner Family; PCP Internal Medicine
DX: L02.214 Cutaneous abscess of groin (principal); E11.9 Type 2 diabetes mellitus without complications; E78.00 Pure hypercholesterolemia, unspecified; F32.A Depression, unspecified
CPT/HCPCS: 99213; G0463

== ENCOUNTER 2023-01-09 19:44 | Emergency (ER) | payer OTHER, SELFPAY ==
[2023-01-09 19:51] VITALS: BP 148/90; PULSE 95; RESP 12; TEMP 36.3; O2SAT 100
--- NOTE | 2023-01-09 19:51 | ED.SKABFB ---
HPI - Skin/Abscess/Foreign Bdy General Chief complaint: Wound/Laceration Stated complaint: Vaginal Problems Time Seen by Provider: 01/09/23 19:51 Source: patient, RN notes reviewed and old records reviewed Mode of arrival: ambulatory Limitations: no limitations History of Present Illness HPI narrative: 37-year-old female presents to the [facility] with an abscess to the right groin area. Was seen yesterday and prescribed antibiotics, states she had to leave and did not do the I and D due to having to pick child up. Patient states she has an appointment next week, Friday, with a surgeon at [facility] Patient states she was awoken with pain to the right groin area at 3:00 a.m. yesterday morning. Onset (ago): day(s) (3) Related Data Home Medications Medication Instructions Recorded Confirmed dulaglutide 4.5 mg/0.5 mL 4.5 mg subcut DAILY 02/05/22 01/09/23 subcutaneous pen injector (Trulicity) escitalopram oxalate 10 mg tablet 10 mg PO DAILY 07/14/22 01/09/23 insulin lispro 100 unit/mL See Rx Instructions .Route .COMPLEX 07/14/22 01/09/23 subcutaneous pen rosuvastatin 40 mg tablet 40 mg PO DAILY 07/14/22 01/09/23 Allergies Allergy/AdvReac Type Severity Reaction Status Date / Time metformin Allergy Headache Verified 01/09/23 19:51 Review of Systems Review of Systems: All systems reviewed & are unremarkable except as noted in HPI and below Constitutional: Constitutional: Reports no additional constitutional complaints Eyes: Eyes: Reports no additional eye complaints ENT: Reports system reviewed and no additional complaints, except as documented Cardiovascular: Cardiovascular: Reports no additional cardiovascular complaints, Denies chest pain and Denies dyspnea Respiratory: Respiratory: Reports no additional respiratory complaints, Denies chest congestion, Denies cough and Denies dyspnea Gastrointestinal: Gastrointestinal: Reports no additional gastrointestinal complaints, Denies abdominal pain, Denies nausea and Denies vomiting Musculoskeletal: Musculoskeletal: Reports no additional musculoskeletal complaints Integumentary/Breasts: Skin/Breast: Reports as per HPI and Reports erythema Neurologic: Reports system reviewed and no additional complaints, except as documented Psychiatric: Psychiatric: Reports no additional psychiatric complaints Allergic/Immunologic: Allergic/Immunologic: Reports no additional allergic/immunologic complaints PMFSH Past Medical History Medical History Depression Diabetes High cholesterol Social History Social History Smoking status: Never smoker Substance use: current Comments At the time of my signature, I reviewed and agree with the nursing past medical, surgical, social, and family history. There is no relevant family history pertinent to the patient complaint. Exam Const: General: cooperative, healthy appearing, comfortable, no acute distress, well developed, alert and well nourished Nutritional Appearance: well nourished and obese Orientation/consciousness: patient oriented x3 Limitations: no limitations HENMT: Head: normal to inspection Ears: hearing grossly normal bilaterally and external ears normal Face/Nose/Sinus: Normal external nose present, Normal nares present, Normal nasal mucous membranes and turbinates present and normal facial exam Face and sinus: normal facial exam Mouth: Yes Normal oral and palatal mucosa present, Yes lip normal and Yes moist mucous membranes Eyes: General: appearance normal, both eyes and all related structures Alignment and Position: alignment normal Periorbital: periorbital findings normal Conjunctivae: conjunctivae normal Pupils: Equal, round and reactive pupils present EOM: EOMs intact bilaterally Neck: Neck: normal visual inspection, full ROM, no lymphadenopathy and no meningeal signs Chest: Chest pa
== END 2023-01-09 20:19 | disposition home or self-care (01) ==
PROVIDERS: Emergency Provider Nurse Practitioner; PCP Internal Medicine
DX: L02.214 Cutaneous abscess of groin (principal); E11.9 Type 2 diabetes mellitus without complications; E78.00 Pure hypercholesterolemia, unspecified
CPT/HCPCS: 10061; 87070; 87205; 99213; G0463

== ENCOUNTER 2023-05-31 09:42 | Emergency (ER) | payer OTHER, SELFPAY ==
[2023-05-31 09:51] VITALS: BP 140/98; PULSE 88; RESP 16; TEMP 35.9; O2SAT 100
--- NOTE | 2023-05-31 10:20 | ED.URI ---
HPI - URI/Sore Throat General Chief Complaint: Upper Respiratory Infection Stated Complaint: Sore throat Time Seen by Provider: 05/31/23 10:07 Source: patient Mode of arrival: ambulatory Limitations: no limitations History of Present Illness HPI Narrative: Patient presents today complaining of cough, sore throat, rhinorrhea, congestion x4 days. Denies fever or shortness of breath. No history of asthma or COPD. She is a nonsmoker. She has been taking DayQuil and NyQuil with little relief. Related Data Home Medications Medication Instructions Recorded Confirmed dulaglutide 4.5 mg/0.5 mL 4.5 mg subcut DAILY 02/05/22 01/09/23 subcutaneous pen injector (Trulicity) escitalopram oxalate 10 mg tablet 10 mg PO DAILY 07/14/22 01/09/23 insulin lispro 100 unit/mL See Rx Instructions .Route .COMPLEX 07/14/22 01/09/23 subcutaneous pen rosuvastatin 40 mg tablet 40 mg PO DAILY 07/14/22 01/09/23 Allergies Allergy/AdvReac Type Severity Reaction Status Date / Time metformin AdvReac Intermediate Headache Verified 05/31/23 09:46 Review of Systems Review of Systems: CONSTITUTIONAL: Denies body aches, fever, chills, or sweats. EYES: Denies visual changes, redness, or discharge. ENT: Denies otalgia.+ congestion, sore throat, rhinorrhea CARDIOVASCULAR: Denies chest pain, palpitations, or edema. RESPIRATORY: Denies dyspnea.+ cough GASTROINTESTINAL: Denies abdominal pain, nausea, vomiting, or diarrhea. GENITOURINARY: Denies dysuria or hematuria. SKIN: Denies rash, itching, or wounds. MUSCULOSKELETAL: Denies back pain, joint pain, or myalgia. NEUROLOGIC: Denies headache, numbness, tingling, or weakness. PSYCH: Denies depression or anxiety. [facility] Past Medical History Medical History Depression Diabetes High cholesterol Social History Social History Smoking status: Never smoker Substance use: current Comments At time of signature, I have reviewed and agree with nursing past medical, surgical, social and family history unless otherwise noted. Please see nursing chart for further information. There is no relevant family history pertinent to the presenting complaint Exam Narrative: GENERAL: Well-appearing, well-nourished, and in no acute distress. HEAD: Normocephalic, atraumatic. EYES: EOMI. No redness or drainage. Conjunctivae normal. ENT: Mucous membranes pink and moist. Nares congested with rhinorrhea. TMs normal bilaterally. Throat erythematous without edema or exudate. Uvula midline. NECK: Normal AROM. Supple. No lymphadenopathy. CHEST: No respiratory distress. Clear to auscultation. HEART: Regular rate and rhythm. No murmur appreciated. Normal peripheral pulses. EXTREMITIES: Normal range of motion. No edema. SKIN: Warm, dry, no rash. Capillary refill normal. Normal skin turgor. NEURO: No focal deficits. Alert and oriented x3. Gait steady. PSYCH: Normal affect. No signs of depression or anxiety. Course Course Level of Care: Express Care Visit Vital Signs Vital signs: Vital Signs Temperature 96.6 F L 05/31/23 09:51 Pulse Rate 88 05/31/23 09:51 Respiratory Rate 16 05/31/23 09:51 Blood Pressure 140/98 H 05/31/23 09:51 Pulse Oximetry 100 05/31/23 09:51 Oxygen Delivery Room Air 05/31/23 09:51 Temperature 96.6 F L 05/31/23 09:51 Pulse Rate 88 05/31/23 09:51 Respiratory Rate 16 05/31/23 09:51 Blood Pressure 140/98 H 05/31/23 09:51 Pulse Oximetry 100 05/31/23 09:51 Oxygen Delivery Room Air 05/31/23 09:51 Reviewed. Pt has been instructed to follow up with her PCP regarding her elevated blood pressure today. MDM - URI/Sore Throat MDM Narrative Medical decision making narrative: Rapid strep negative. Culture pending. Symptoms likely viral in etiology. No prescription medications indicated at this time. Anticipatory guidance give
== END 2023-05-31 10:27 | disposition home or self-care (01) ==
PROVIDERS: Emergency Provider Nurse Practitioner; PCP Internal Medicine
DX: J06.9 Acute upper respiratory infection, unspecified (principal); E11.9 Type 2 diabetes mellitus without complications; E78.00 Pure hypercholesterolemia, unspecified; F32.A Depression, unspecified
CPT/HCPCS: 87081; 87880; 99213; G0463